=== PATIENT | female | born 1995 | race Caucasian/White ===

== ENCOUNTER → 2020-05-18 | Outpatient (CLI) | payer BC | LOC: LAB 13:21 | PROVIDERS: Internal Medicine | DX: E05.00 Thyrotoxicosis with diffuse goiter without thyrotoxic crisis or storm (principal) | CPT/HCPCS: 36415; 83520; 84439; 84443; 84481 ==

== ENCOUNTER → 2020-11-21 | Outpatient (CLI) | payer BC | LOC: LAB 12:25 | PROVIDERS: Internal Medicine | DX: E05.00 Thyrotoxicosis with diffuse goiter without thyrotoxic crisis or storm (principal) | CPT/HCPCS: 36415; 83520; 84439; 84443; 84481 ==